=== PATIENT | male | born 1980 | race Two or more races ===

== ENCOUNTER → 2024-12-27 | Outpatient (CLI) | payer OTHER, SELFPAY ==
--- NOTE | 2024-12-27 14:35 | XR_ITS ---
Examination: Left elbow 3 views Technique: Elbow AP, oblique, lateral 3 views Exam date and time: December 27, 2024 1443 hours INDICATIONS: Left elbow pain and swelling beginning one month ago FINDINGS: No fracture or dislocation No elbow effusion Mild diffuse osteoarthritis IMPRESSION: Mild diffuse elbow osteoarthritis No fracture No elbow effusion.
== END | disposition home or self-care (01) ==
PROVIDERS: PCP Family Medicine; Referring Provider Family Medicine; Visit Provider Family Medicine
DX: M19.022 Primary osteoarthritis, left elbow (principal)
CPT/HCPCS: 73080